=== PATIENT | male | born 1990 | race Caucasian/White ===

== ENCOUNTER 2023-04-22 11:42 | Emergency (ER) | payer SELFPAY ==
[~2023-04-22] VITALS: Ht 170.2 cm; Wt 80.6 kg
[2023-04-22 11:43] VITALS: BP 135/76; TEMP 97.5; O2SAT 99
[2023-04-22] MEDS: FLUORESCEIN OPHTH 1MG STRIP OD ONE (12:20)
[2023-04-22] MEDS: PROPARACAINE 0.5% OPHTH SOL 15ML OD ONE (12:20)
[2023-04-22] MEDS ORDERED: PREDOPD OD (13:08)
== END 2023-04-22 13:18 | disposition home or self-care (01) ==
LOC: M ED 11:42
DX: H16.101 Unspecified superficial keratitis, right eye (principal); F17.200 Nicotine dependence, unspecified, uncomplicated; F12.10 Cannabis abuse, uncomplicated; F10.10 Alcohol abuse, uncomplicated; Z79.52 Long term (current) use of systemic steroids